=== PATIENT | male | born 1955 | race Caucasian/White ===

== ENCOUNTER 2021-12-10 00:51 | Emergency (ER) | payer MEDICARE ==
[~2021-12-10] VITALS: Ht 182.9 cm; Wt 72.6 kg
[2021-12-10] MEDS ORDERED: PANT20 PO (01:43)
[2021-12-10] MEDS ORDERED: ASPI81CH PO (01:43)
[2021-12-10] MEDS ORDERED: ATOR40TA PO (01:44)
[2021-12-10] MEDS ORDERED: Hair, Skin & N1 EACH PO (01:44)
== END 2021-12-10 03:04 | disposition home or self-care (01) ==
LOC: ER 00:51
DX: S61.411A Laceration without foreign body of right hand, initial encounter (principal); Z79.82 Long term (current) use of aspirin; Z79.899 Other long term (current) drug therapy; W22.8XXA Striking against or struck by other objects, initial encounter
CPT/HCPCS: 99282